=== PATIENT | male | born 1960 | race Caucasian/White ===

== ENCOUNTER 2016-11-14 11:16 | Observation (INO) | payer OTHER ==
[~2016-11-14] VITALS: Ht 175.3 cm; Wt 73.3 kg
[~2016-11-14 11:16] MED LIST: ASPERDRINK81 MG PO; ASPIRIN EC325 MG PO; ASPIRIN325 MG PO; CARVEDILOL12.5 MG PO; COREG CR10 MG PO; COREG12.5 M1 PO; Coreg PO; ENDOCET 5-3251 EACH PO; Ecotrin PO; GABAPENTIN300 MG PO; Habitrol,Nicoderm CQ TD; IMDUR30 MG PO; Imdur PO; LIDOCAINE700 MG TD; LIPITOR40 MG PO; LISINOPRIL10 MG PO; LYRICA100 MG PO; LYRICA50 MG PO; Lyrica PO; NITROSTAT0.4 MG SL; NORCO 5/3251 TABLET PO; PERCOCET 10/1 TABLET PO; PERCOCET 5-3251 EACH PO; PERCOCET 5/31 TABLET PO; PLAVIX75 MG PO; PRINIVIL10 MG PO; PROAIR HFA8.5 GM IH; PROTONIX IV40 MG PO; PROTONIX40 MG PO; PROVENTIL,2.5 MG/3 M IH; Percocet 5/325,Endoc PO; Plavix PO; Protonix PO; Proventil,Ventolin H IH; Pyridoxine,Vitamin B PO; SIMVASTATIN80 MG PO; SPIRIVA1 INHALATI IH; TYLENOL EXTRA500 MG PO; VALIUM5 MG PO; VITAMIN B-6100 MG PO; VITAMIN B-650 MG PO; Valium PO; ZOCOR40 MG PO; ZOVIRAX800 M1 PO; predniSONE PO
[2016-11-14 11:59] LABS: HEMATOCRIT 47.5 % (38.0-50.0); MCH 34.1 PG (29.0-34.0); MCHC 36.6 G/DL (30.0-36.0); MCV 93.1 FL (86-99); MEAN PLAT.VOLUME 9.1 uM^3 (9.0-12.4); PLATELET COUNT 264 K/uL (156-360); RBC DIS.WIDTH-SD 43.1 % (39-53); WHITE BLOOD COUNT 12.1 K/uL (4.1-10.2)
[2016-11-14 12:09] LABS: INTER. NORMALIZED RATIO 1.1; PROTHROMBIN TIME 11.1 (9.2-11.2); PTT 29.9 (25-32)
[2016-11-14 12:10] LABS: CHLORIDE 107 mEq/L (99-109); POTASSIUM 3.6 mEq/L (3.7-5.4); SODIUM 139 mEq/L (136-147)
[2016-11-14 12:11] LABS: GLUCOSE 141 mg/dL (70-99)
[2016-11-14 12:13] LABS: ANION GAP 12 MEQ/L (2-14)
[2016-11-14 12:15] LABS: GFR ESTIMATE (CALCULATED) > 59 mL/min/
[2016-11-14 12:16] LABS: UREA NITROGEN (BUN) 12 mg/dL (9-23)
[2016-11-14 12:21] LABS: TROP-I INTERPRETATION NEGATIVE; TROPONIN-I < 0.01 ng/mL (0.0-0.30)
[2016-11-14 12:42] LABS: BASOPHIL COUNT 0.1 K/uL (0-0.1); EOSINOPHIL (%) 2.1 % (0-5); EOSINOPHIL COUNT 0.3 K/uL (0-0.3); IMMATURE GRANULOCYTE (%) 0.2 % (0.0-0.7); IMMATURE GRANULOCYTE COUNT 0.3 K/uL; LYMPHOCYTE COUNT 3.6 K/uL (1.0-2.8); MONOCYTE COUNT 0.9 K/uL (0-0.8); NEUTROPHIL (%) 60.7 % (45-76); NEUTROPHIL COUNT 7.3 K/uL (1.8-6.4)
[2016-11-14 13:10] LABS: HEMATOLOGY COMMENT 1 SMEAR COMPATIBLE; USER ID MCB
[2016-11-14] MEDS ORDERED: NEURONTIN300 MG PO (13:25)
[2016-11-14] MEDS ORDERED: CILOSTAZOL50 MG PO (13:27)
[2016-11-14] MEDS ORDERED: VITAMIN B-12500 MC5 SL (13:28)
[2016-11-14] MEDS ORDERED: RESTORIL15 MG PO (13:29)
[2016-11-14] MEDS ORDERED: PAXIL20 MG PO (13:30)
[2016-11-14 15:01] LABS: INFLUENZA A VIRAL ANTIGEN NEGATIVE; INFLUENZA B VIRAL ANTIGEN NEGATIVE
[2016-11-14 17:18] VITALS: BP 122/65
[2016-11-14 21:09] VITALS: BP 133/58
[2016-11-14 22:01] LABS: TROP-I INTERPRETATION NEGATIVE; TROPONIN-I < 0.01 ng/mL (0.0-0.30)
[2016-11-15 00:35] VITALS: BP 119/56
[2016-11-15 05:13] VITALS: BP 149/97
[2016-11-15 08:13] VITALS: BP 115/60
[2016-11-15 09:30] LABS: ANION GAP 12 MEQ/L (2-14); CHLORIDE 103 MEQ/L (99-109); GFR ESTIMATE (CALCULATED) > 59 mL/min/; GLUCOSE 200 mg/dL (70-99); POTASSIUM 3.8 MEQ/L (3.7-5.4); SAMPLE HEMOLYSIS CHECK 0; SAMPLE ICTERIC CHECK 0; SAMPLE LIPEMIA CHECK 0; SODIUM 137 MEQ/L (136-147); UREA NITROGEN (BUN) 12 mg/dL (9-23)
[2016-11-15] MEDS ORDERED: NICOTINE PATCH1 EAC2 TD (11:08)
[2016-11-15] MEDS ORDERED: PREDNISONE10 MG PO (11:08)
[2016-11-15] MEDS ORDERED: LEVOFLOXACIN750 MG PO (11:08)
[2016-11-15] MEDS ORDERED: ADVAIR HFA120 INHALA IH (11:08)
[2016-11-15] MEDS ORDERED: DUONEB 2.5-0.5 M3 ML AEROSOL (11:08)
[2016-11-15 11:19] VITALS: BP 130/72
== END 2016-11-15 13:37 | disposition home or self-care (01) ==
LOC: EME 11:16 → 5WEST 12:29 → EDOF 12:29 → 5WEST 17:06
PROVIDERS: Emergency Medicine; Internal Medicine; Nurse Practitioner Adult Health
DX: J44.1 Chronic obstructive pulmonary disease with (acute) exacerbation (principal); I27.2 Other secondary pulmonary hypertension; I25.10 Atherosclerotic heart disease of native coronary artery without angina pectoris; Z95.5 Presence of coronary angioplasty implant and graft; E78.5 Hyperlipidemia, unspecified; I10 Essential (primary) hypertension; R94.31 Abnormal electrocardiogram [ECG] [EKG]; D72.829 Elevated white blood cell count, unspecified; Z82.49 Family history of ischemic heart disease and other diseases of the circulatory system; F17.200 Nicotine dependence, unspecified, uncomplicated; Z88.8 Allergy status to other drugs, medicaments and biological substances; Z91.018 Allergy to other foods; Z91.030 Bee allergy status
CPT/HCPCS: 71010; 80048; 83880; 84484; 85025; 85610; 85730; 87070; 87077; 87205; 87502; 87651 90; 93005; 93306; 94640; 94640 76; 94799; 99202; 99281; 99285; G0378; J1650; J2930; J7030

== ENCOUNTER 2017-07-21 20:15 | Emergency (ER) | payer OTHER ==
[~2017-07-21] VITALS: Ht 172.7 cm; Wt 73.1 kg
[~2017-07-21 20:15] MED LIST changes: +ADVAIR HFA120 INHALA IH; +CILOSTAZOL50 MG PO; +DUONEB 2.5-0.5 M3 ML AEROSOL; +LEVOFLOXACIN750 MG PO; +NEURONTIN300 MG PO; +NICOTINE PATCH1 EAC2 TD; +PAXIL20 MG PO; +PREDNISONE10 MG PO; +RESTORIL15 MG PO; +VITAMIN B-12500 MC5 SL
[2017-07-21 21:26] LABS: HEMATOCRIT 51.3 % (38.0-50.0); MCH 34.6 PG (29.0-34.0); MCHC 34.9 G/DL (30.0-36.0); PLATELET COUNT 262 K/uL (156-360); RBC DIS.WIDTH-CV 12.8 % (11.8-14.6); RBC DIS.WIDTH-SD 47.6 % (39-53); RED BLOOD COUNT 5.18 M/uL (4.00-5.50); WHITE BLOOD COUNT 17.1 K/uL (4.1-10.2)
[2017-07-21 21:33] LABS: CHLORIDE 98 mEq/L (99-109); POTASSIUM 3.9 mEq/L (3.7-5.4); SODIUM 134 mEq/L (136-147)
[2017-07-21 21:35] LABS: GLUCOSE 156 mg/dL (70-99)
[2017-07-21 21:36] LABS: ANION GAP 7 MEQ/L (2-14)
[2017-07-21 21:39] LABS: GFR ESTIMATE (CALCULATED) > 59 mL/min/
[2017-07-21 21:40] LABS: UREA NITROGEN (BUN) 13 mg/dL (9-23)
[2017-07-21] MEDS ORDERED: DUONEB 2.5-0.5 M3 ML AEROSOL (22:21)
[2017-07-21] MEDS ORDERED: PREDNISONE20 MG PO (22:21)
[2017-07-21] MEDS ORDERED: LEVAQUIN750 MG PO (22:21)
[2017-07-21 23:04] VITALS: BP 100/73
== END 2017-07-21 23:51 | disposition home or self-care (01) ==
LOC: RME 20:15 → EME 20:15 → RME 23:51
PROVIDERS: Nurse Practitioner Family
DX: J44.1 Chronic obstructive pulmonary disease with (acute) exacerbation (principal); J44.0 Chronic obstructive pulmonary disease with (acute) lower respiratory infection; J18.9 Pneumonia, unspecified organism; F32.9 Major depressive disorder, single episode, unspecified; I25.2 Old myocardial infarction; M79.7 Fibromyalgia; K21.9 Gastro-esophageal reflux disease without esophagitis; I10 Essential (primary) hypertension; F41.9 Anxiety disorder, unspecified; E78.5 Hyperlipidemia, unspecified; I25.10 Atherosclerotic heart disease of native coronary artery without angina pectoris; Z95.1 Presence of aortocoronary bypass graft; Z95.5 Presence of coronary angioplasty implant and graft; Z79.82 Long term (current) use of aspirin; Z79.02 Long term (current) use of antithrombotics/antiplatelets; Z79.891 Long term (current) use of opiate analgesic; Z72.0 Tobacco use
CPT/HCPCS: 71020; 80048; 85027; 93005; 94640; 94640 76; 99281; 99284; J7512